=== PATIENT | female | born 1945 | race Caucasian/White ===

== ENCOUNTER 2017-05-17 17:06 | Emergency (ER) | payer MEDICARE, OTHER ==
[~2017-05-17] VITALS: Ht 152.4 cm; Wt 67.3 kg
[2017-05-17] MEDS ORDERED: IBUPROFEN 600 MG TABLET PO ONE (19:30)
[2017-05-17 20:27] VITALS: BP 151/69
== END 2017-05-17 20:29 | disposition home or self-care (01) ==
LOC: EMS 17:08
DX: M25.512 Pain in left shoulder (principal); R03.0 Elevated blood-pressure reading, without diagnosis of hypertension
CPT/HCPCS: 99284

== ENCOUNTER 2017-06-14 20:06 | Emergency (ER) | payer MEDICARE, OTHER ==
[~2017-06-14] VITALS: Ht 160 cm; Wt 85.0 kg
[2017-06-14] MEDS ORDERED: HYDR25TA PO (20:46)
[2017-06-14 21:33] VITALS: BP 144/80
== END 2017-06-14 21:33 | disposition home or self-care (01) ==
LOC: EMS 20:08
DX: L03.032 Cellulitis of left toe (principal); I10 Essential (primary) hypertension; Z90.49 Acquired absence of other specified parts of digestive tract
CPT/HCPCS: 99283